=== PATIENT | male | born 1985 | race Caucasian/White ===

== ENCOUNTER 2021-09-04 09:28 | Outpatient (CLI) | payer OTHER, SELFPAY ==
[2021-09-04 12:55] LABS: Vitamin D,25 Hydroxy 9.6 ng/mL
[2021-09-04 12:59] LABS: Microalbumin,Random Urine 74.6 mg/L (NO RANGE EST.)
[2021-09-04 13:57] LABS: AST(SGOT) 47 U/L (15-37); Alanine Aminotransfer ALT/SGPT 89 U/L (16-61); Albumin, Serum 4.1 g/dL (3.2-5.0); Alkaline Phosphatase 80 U/L (45-117); Anion Gap 10 (5-15); BUN 21 mg/dL (7-18); BUN/Creat Ratio 20.2 RATIO (10-20); Calcium,Total 9.5 mg/dL (8.5-10.1); Chloride 100 mmol/L (98-107); Cholesterol 231 mg/dL (200); Creatinine, Serum 1.04 mg/dL (0.70-1.30); EST Glomerular Filtration Rate 85 mL/min (>60); Est Glom Filt Rate - Afr Amer 103 mL/min (>60); Glucose 267 mg/dL (74-106); High Density Lipoprotein 22 mg/dL; Potassium 4.3 mmol/L (3.5-5.1); Protein, Total 8.1 g/dL (6.4-8.2); Sodium Level 133 mmol/L (136-145); Thyroid Stim Hormone (TSH) 1.61 uIU/mL (0.358-3.74); Triglycerides 1837 mg/dL
== END 2021-09-04 23:59 | disposition short-term general hospital (02) ==
LOC: BIMLAB 09:29
PROVIDERS: Referring Provider Internal Medicine Endocrinology, Diabetes & Metabolism; Visit Provider Internal Medicine Endocrinology, Diabetes & Metabolism
DX: E11.9 Type 2 diabetes mellitus without complications (principal); Z79.4 Long term (current) use of insulin; I10 Essential (primary) hypertension; E66.09 Other obesity due to excess calories; E55.9 Vitamin D deficiency, unspecified; Z68.33 Body mass index [BMI] 33.0-33.9, adult
CPT/HCPCS: 36415; 80053; 80061; 82043; 82306; 82570; 84443

== ENCOUNTER → 2021-12-04 | Outpatient (CLI) | payer OTHER, SELFPAY ==
[2021-12-04 12:44] LABS: Cholesterol 183 mg/dL (200); High Density Lipoprotein 31 mg/dL; Triglycerides 268 mg/dL; Very Low Density Lipoprotein 54 mg/dL (5-40)
== END | disposition home or self-care (01) ==
LOC: BIMLAB 09:07
PROVIDERS: Referring Provider Internal Medicine Endocrinology, Diabetes & Metabolism; Visit Provider Internal Medicine Endocrinology, Diabetes & Metabolism
DX: E78.2 Mixed hyperlipidemia (principal)
CPT/HCPCS: 36415; 80061

== ENCOUNTER → 2023-03-05 | Outpatient (CLI) | payer OTHER, SELFPAY ==
[2023-03-05 13:23] LABS: Microalbumin,Random Urine 59.3 mg/L (NO RANGE EST.); Microalbumin:Creatinine Ratio 50.3 mg/g CRE (<30 mg/g CRE)
[2023-03-05 14:31] LABS: Alanine Aminotransfer ALT/SGPT 56 U/L (16-61); Alkaline Phosphatase 73 U/L (45-117); BUN 18 mg/dL (7-18); Calcium,Total 8.7 mg/dL (8.5-10.1); Cholesterol 267 mg/dL (200); Creatinine, Serum 0.83 mg/dL (0.70-1.30); Globulin 4.1 g/dL (2.2-4.2); Glucose 138 mg/dL (74-106); Protein, Total 8.1 g/dL (6.4-8.2)
[2023-03-05 14:32] LABS: AST(SGOT) 22 U/L (15-37); Anion Gap 8 (5-15); Chloride 105 mmol/L (98-107); High Density Lipoprotein 25 mg/dL; Sodium Level 135 mmol/L (136-145); Thyroid Stim Hormone (TSH) 1.78 uIU/mL (0.358-3.74); Triglycerides 1515 mg/dL
[2023-03-05 14:55] LABS: BUN/Creat Ratio 21.8 RATIO (10-20); EST Glomerular Filtration Rate 110 mL/min (>60); Est Glom Filt Rate - Afr Amer 133 mL/min (>60); Potassium 4.4 mmol/L (3.5-5.1)
== END | disposition home or self-care (01) ==
LOC: BIMLAB 08:48
PROVIDERS: Referring Provider Internal Medicine Endocrinology, Diabetes & Metabolism; Visit Provider Internal Medicine Endocrinology, Diabetes & Metabolism
DX: I10 Essential (primary) hypertension (principal); E11.9 Type 2 diabetes mellitus without complications; Z79.4 Long term (current) use of insulin; E78.2 Mixed hyperlipidemia; E55.9 Vitamin D deficiency, unspecified
CPT/HCPCS: 36415; 80053; 80061; 82043; 82306; 82570; 84443